=== PATIENT | male | born 1990 | race Caucasian/White ===

== ENCOUNTER 2018-02-09 01:41 | Emergency (ER) | payer SELFPAY, OTHER ==
[2018-02-09] MEDS: morphine 10 MG INJ IM (03:36)
[2018-02-09] MEDS: ONDANSETRON (ODT) 4 MG TAB ODT (03:36)
[2018-02-09] MEDS: DIAZEPAM 5 MG/ML SYG IM (04:19)
== END 2018-02-09 06:02 | disposition home or self-care (01) ==
LOC: FTE 01:41
DX: S49.92XA Unspecified injury of left shoulder and upper arm, initial encounter (principal); S42.022A Displaced fracture of shaft of left clavicle, initial encounter for closed fracture; S22.42XA Multiple fractures of ribs, left side, initial encounter for closed fracture; F17.210 Nicotine dependence, cigarettes, uncomplicated; V28.4XXA Motorcycle driver injured in noncollision transport accident in traffic accident, initial encounter
CPT/HCPCS: 71046; 71100; 71250; 73030; 96372; 99285-25